=== PATIENT | male | born 2000 | race Caucasian/White ===

== ENCOUNTER 2022-07-17 16:56 | Emergency (ER) | payer BC, SELFPAY ==
[2022-07-17] VITALS (9 sets, daily range): BP systolic 105–133; BP diastolic 64–84; PULSE 60–74; RESP 10–21; TEMP 36.8; O2SAT 97–99; BMI 23.6
--- NOTE | 2022-07-17 18:07 | XR_ITS ---
[address] [address] Patient Name: NAPOLEON JOSE MRN: [id number] date: 2000 Sex: M Assigned Patient Location: ER Current Patient Location: ER Accession/Order Number: [id number] Exam Date: 07/17/2022 18:25 Report Date: 07/17/2022 19:22 At the request of: VIVIAN JOHNSON Procedure: XR chest 2V EXAMINATION: XR chest 2V, , 07/17/2022 6:25 PM EDT INDICATION: pain HISTORY: Ordering Provider Reason for Exam: pain Technologist Note: Additional: COMPARISON: None. TECHNIQUE: Chest x-ray: Two views. FINDINGS: No pneumothorax, pleural effusion or focal airspace consolidation. Heart is normal in size. Bony thorax is unremarkable. IMPRESSION: No acute cardiopulmonary process. Electronically authenticated by: SEBASTIAN SOTO Date: 07/17/2022 19:22
--- NOTE | 2022-07-17 18:07 | ED.GENADUL1 ---
Documented by User: Oliva Domínguez 07/17/22 19:59 HPI - General Adult General Chief complaint: Dizziness Stated complaint: SOB/ARM PAIN Time Seen by Provider: 07/17/22 18:03 Source: patient Mode of arrival: walk-in Limitations: no limitations History of Present Illness HPI narrative: 21-year-old male presents here chief complaint of two day history of chest pain with dizziness. Patient denies any recent surgery travel or trauma. The symptoms coming go. He states he was work last night and felt like he was going to pass out and had intermittent chest pain as well. She denies previous pulmonary embolism or any history of blood clots. Vital signs are stable he's afebrile he is not tachycardic or tachypneic Related Data Previous Rx's Medication Instructions Recorded meclizine 50 mg tablet (Antivert) 50 mg PO DAILY PRN dizziness #7 07/17/22 tabs Allergies Allergy/AdvReac Type Severity Reaction Status Date / Time No Known Drug Allergies Allergy Verified 07/17/22 17:07 Review of Systems ROS Narrative All Systems are negative except as noted/marked.All systems reviewed and otherwise negative Exam Narrative Exam Narrative: Nurses note and vital signs reviewed and patient is not hypoxic. General: The patient appears well and in no apparent distress. Patient is resting comfortably on cart. Skin: Warm, dry, no pallor noted. There is no rash noted. Head: Normocephalic, atraumatic Eye: Normal conjunctiva, no drainage, EOMI. PERRL, no nystagmus Ears, Nose, Mouth, and Throat: oral mucosa is moist. Nares patent. Mouth without vesicles. Ear canals patent. Tm's without Erythema Cardiovascular: Regular Rate and Rhythm Respiratory: Patient is in no distress, no accessory muscle use, lungs are clear to auscultation, no wheezing, rales or rhonchi Back: non-tender, no CVA tenderness bilaterally to percussion. GI: Normal bowel sounds, no tenderness to palpation, no masses appreciated. No rebound, guarding, or rigidity noted. Musculoskeletal: The patient has no evidence of calf tenderness, no pitting edema, symmetrical pulses noted bilaterally Neurological: A&O x4, normal speech Psychiatric: Cooperative Constitutional Vital Signs - 24 hr 07/17/22 17:04 07/17/22 17:11 07/17/22 17:12 Temperature 98.3 F Pulse Rate 71 71 Pulse Rate [Monitor] 72 Respiratory Rate 18 16 17 Blood Pressure 130/77 H Blood Pressure [Left Arm] 109/84 H Pulse Oximetry 97 98 Oxygen Delivery Method Room Air 07/17/22 17:12 07/17/22 17:12 07/17/22 17:30 Temperature Pulse Rate 70 74 66 Pulse Rate [Monitor] Respiratory Rate 17 15 19 Blood Pressure 130/77 H 113/64 Blood Pressure [Left Arm] Pulse Oximetry 99 98 98 Oxygen Delivery Method 07/17/22 18:00 07/17/22 18:32 07/17/22 19:00 Temperature Pulse Rate 72 60 62 Pulse Rate [Monitor] Respiratory Rate 21 16 14 Blood Pressure 108/65 123/79 H 123/74 H Blood Pressure [Left Arm] Pulse Oximetry 98 99 99 Oxygen Delivery Method 07/17/22 19:30 07/17/22 19:30 Temperature Pulse Rate 67 64 Pulse Rate [Monitor] Respiratory Rate 14 12 Blood Pressure 133/74 H 133/74 H Blood Pressure [Left Arm] Pulse Oximetry 98 98 Oxygen Delivery Method Course Vital Signs Vital signs: Vital Signs Temperature 98.3 F 07/17/22 17:04 Pulse Rate 72 07/17/22 17:04 Respiratory Rate 18 07/17/22 17:04 Blood Pressure 109/84 H 07/17/22 17:04 Pulse Oximetry 97 07/17/22 17:04 Oxygen Delivery Method Room Air 07/17/22 17:04 Temperature 98.3 F 07/17/22 17:04 Pulse Rate 63 07/17/22 20:00 Respiratory Rate 10 L 07/17/22 20:00 Blood Pressure 105/76 07/17/22 20:00 Pulse Oximetry 99 07/17/22 19:30 Oxygen Delivery Method Room Air 07/17/22 17:04 Medical Decision Making MDM Narrative Medical decision making narrative: Healthy 21-year-old male presented here chief complaint dizziness. Patient state felt dizzy earlier today and yesterday while at work. He said he had some chest pressure. EKG showed a normal sinus rhythm no acute changes. CBC BMP and troponin were all reviewed and unremarkable. D-dimer was also ordered and negative. Patient's had no recent surgery travel trauma. Patient shows no signs of symptoms of PE or stroke. He has no nystagmus. Patient was medicated here with Toradol for his chest wall pain is states that has improved. Patient be discharged home diagnosis chest wall pain, dizziness. Otherwise healthy. Differential Diagnosis Differential Diagnosis: Deep vein thrombosis, PE, dizziness, upper respiratory infection Medical Records Medical records reviewed: Yes I reviewed the patient's medical records Lab Data Lab results reviewed: Yes I reviewed the patient's lab results Labs: Lab Results 07/17/22 07/17/22 Range/Units 18:40 18:45 WBC 4.0 (4.0-11.0) 10^3/uL RBC 4.94 (4.70-6.10) 10^6/uL Hgb 15.6 (14.0-18.0) g/dL Hct 45.6 (42.0-54.0) % MCV 92.3 (80.0-94.0) fL MCH 31.6 (25.9-34.0) pg MCHC 34.2 (29.9-35.2) g/dL RDW 12.1 (11.0-15.0) % Plt Count 220 (150-450) 10^3/uL MPV 9.3 L (9.5-13.5) fL Neut % (Auto) 55.1 (43.0-75.0) % Lymph % (Auto) 29.8 (20.5-60.0) % [place] % (Auto) 11.9 (1.7-12.0) % Eos % (Auto) 2.5 (0.9-7.0) % Baso % (Auto) 0.5 (0.2-2.0) % Neut # (Auto) 2.2 (1.4-6.5) 10^3/uL Lymph # (Auto) 1.2 (1.2-3.8) 10^3/uL [place] # (Auto) 0.5 (0.3-0.8) 10^3/uL Eos # (Auto) 0.1 (0.0-0.7) 10^3/uL Baso # (Auto) 0.0 (0.0-0.1) 10^3/uL Abs Immat Gran (auto) 0.01 (0.00-0.03) 10^3/uL Imm/Tot Granulo (auto) 0.2 (0.0-0.5) % D-Dimer <0.19 (<=0.59) mg/L FEU Sodium 138 (136-145) mmol/L Potassium 3.9 (3.5-5.1) mmol/L Chloride 102 (98-107) mmol/L Carbon Dioxide 27.3 (21.0-32.0) mmol/L Anion Gap 12.6 BUN 15.0 (7.0-18.0) mg/dL Creatinine 0.84 (0.70-1.30) mg/dL Est GFR ( Amer) >60 (>=60) Est GFR (Non-Af Amer) >60 (>=60) BUN/Creatinine Ratio 17.9 Glucose 95 (74-106) mg/dL Calcium 9.5 (8.5-10.1) mg/dL Troponin I High Sens <4.0 L (4.0-76.1) pg/mL ECG Data Interpretation: 1711 normal sinus rhythm rate of 68 bpm, IL interval 114 ms, QRS 90 ms, no STEMI Discharge Plan Discharge Chief Complaint: Dizziness Clinical Impression: Dizziness Patient Disposition: Home, Self-Care Time of Disposition Decision: 19:50 Prescriptions / Home Meds: New Antivert 50 mg tablet 50 mg PO DAILY PRN (Reason: dizziness) Qty: 7 0RF Instructions: Dizziness (ED) Stand Alone Forms: Portal Instructions Referrals: KATHY WELLINGTON [Primary Care Provider] - 1 week Discharge Date/Time: 07/17/22 20:05 Documented by User: Kayce Dumont MD 07/20/22 11:57 HPI - General Adult General Chief complaint: Dizziness Stated complaint: SOB/ARM PAIN Time Seen by Provider: 07/17/22 18:03 Related Data Previous Rx's Medication Instructions Recorded meclizine 50 mg tablet (Antivert) 50 mg PO DAILY PRN dizziness #7 07/17/22 tabs Allergies Allergy/AdvReac Type Severity Reaction Status Date / Time No Known Drug Allergies Allergy Verified 07/17/22 17:07 Exam Constitutional Vital Signs - 24 hr 07/17/22 17:04 07/17/22 17:11 07/17/22 17:12 Temperature 98.3 F Pulse Rate 71 71 Pulse Rate [Monitor] 72 Respiratory Rate 18 16 17 Blood Pressure 130/77 H Blood Pressure [Left Arm] 109/84 H Pulse Oximetry 97 98 Oxygen Delivery Method Room Air 07/17/22 17:12 07/17/22 17:12 07/17/22 17:30 Temperature Pulse Rate 70 74 66 Pulse Rate [Monitor] Respiratory Rate 17 15 19 Blood Pressure 130/77 H 113/64 Blood Pressure [Left Arm] Pulse Oximetry 99 98 98 Oxygen Delivery Method 07/17/22 18:00 07/17/22 18:32 07/17/22 19:00 Temperature Pulse Rate 72 60 62 Pulse Rate [Monitor] Respiratory Rate 21 16 14 Blood Pressure 108/65 123/79 H 123/74 H Blood Pressure [Left Arm] Pulse Oximetry 98 99 99 Oxygen Delivery Method 07/17/22 19:30 07/17/22 19:30 Temperature Pulse Rate 67 64 Pulse Rate [Monitor] Respiratory Rate 14 12 Blood Pressure 133/74 H 133/74 H Blood Pressure [Left Arm] Pulse Oximetry 98 98 Oxygen Delivery Method Course Vital Signs Vital signs: Vital Signs Temperature 98.3 F 07/17/22 17:04 Pulse Rate 72 07/17/22 17:04 Respiratory Rate 18 07/17/22 17:04 Blood Pressure 109/84 H 07/17/22 17:04 Pulse Oximetry 97 07/17/22 17:04 Oxygen Delivery Method Room Air 07/17/22 17:04 Temperature 98.3 F 07/17/22 17:04 Pulse Rate 63 07/17/22 20:00 Respiratory Rate 10 L 07/17/22 20:00 Blood Pressure 105/76 07/17/22 20:00 Pulse Oximetry 99 07/17/22 19:30 Oxygen Delivery Method Room Air 07/17/22 17:04 Medical Decision Making MDM Narrative Medical decision making narrative: Healthy 21-year-old male presented here chief complaint dizziness. Patient state felt dizzy earlier today and yesterday while at work. He said he had some chest pressure. EKG showed a normal sinus rhythm no acute changes. CBC BMP and troponin were all reviewed and unremarkable. D-dimer was also ordered and negative. Patient's had no recent surgery travel trauma. Patient shows no signs of symptoms of PE or stroke. He has no nystagmus. Patient was medicated here with Toradol for his chest wall pain is states that has improved. Patient be discharged home diagnosis chest wall pain, dizziness. Otherwise healthy. Attending physician attestation I have reviewed the mid-level documentation, agree with the documentation, medical decision making and treatment plan as outlined by the mid-level provider. Lab Data Labs: Lab Results 07/17/22 07/17/22 Range/Units 18:40 18:45 WBC 4.0 (4.0-11.0) 10^3/uL RBC 4.94 (4.70-6.10) 10^6/uL Hgb 15.6 (14.0-18.0) g/dL Hct 45.6 (42.0-54.0) % MCV 92.3 (80.0-94.0) fL MCH 31.6 (25.9-34.0) pg MCHC 34.2 (29.9-35.2) g/dL RDW 12.1 (11.0-15.0) % Plt Count 220 (150-450) 10^3/uL MPV 9.3 L (9.5-13.5) fL Neut % (Auto) 55.1 (43.0-75.0) % Lymph % (Auto) 29.8 (20.5-60.0) % [place] % (Auto) 11.9 (1.7-12.0) % Eos % (Auto) 2.5 (0.9-7.0) % Baso % (Auto) 0.5 (0.2-2.0) % Neut # (Auto) 2.2 (1.4-6.5) 10^3/uL Lymph # (Auto) 1.2 (1.2-3.8) 10^3/uL [place] # (Auto) 0.5 (0.3-0.8) 10^3/uL Eos # (Auto) 0.1 (0.0-0.7) 10^3/uL Baso # (Auto) 0.0 (0.0-0.1) 10^3/uL Abs Immat Gran (auto) 0.01 (0.00-0.03) 10^3/uL Imm/Tot Granulo (auto) 0.2 (0.0-0.5) % D-Dimer <0.19 (<=0.59) mg/L FEU Sodium 138 (136-145) mmol/L Potassium 3.9 (3.5-5.1) mmol/L Chloride 102 (98-107) mmol/L Carbon Dioxide 27.3 (21.0-32.0) mmol/L Anion Gap 12.6 BUN 15.0 (7.0-18.0) mg/dL Creatinine 0.84 (0.70-1.30) mg/dL Est GFR ( Amer) >60 (>=60) Est GFR (Non-Af Amer) >60 (>=60) BUN/Creatinine Ratio 17.9 Glucose 95 (74-106) mg/dL Calcium 9.5 (8.5-10.1) mg/dL Troponin I High Sens <4.0 L (4.0-76.1) pg/mL Discharge Plan Discharge Chief Complaint: Dizziness Clinical Impression: Dizziness Patient Disposition: Home, Self-Care Time of Disposition Decision: 19:50 Prescriptions / Home Meds: New Antivert 50 mg tablet 50 mg PO DAILY PRN (Reason: dizziness) Qty: 7 0RF Instructions: Dizziness (ED) Stand Alone Forms: Portal Instructions Referrals: KATHY WELLINGTON [Primary Care Provider] - 1 week Discharge Date/Time: 07/17/22 20:05
[2022-07-17] MEDS: KETOROLAC TROMETHAMINE 30 MG/ML VIAL IVP (18:44)
[2022-07-17 18:53] LABS: Basophils Percent Auto 0.5 % (0.2-2.0); Eosinophils Absolute Auto 0.1 10^3/uL (0.0-0.7); Eosinophils Percent Auto 2.5 % (0.9-7.0); Hematocrit 45.6 % (42.0-54.0); Hemoglobin 15.6 g/dL (14.0-18.0); Immature Granulocytes Abs Auto 0.01 10^3/uL (0.00-0.03); Immature Granulocytes Pct Auto 0.2 % (0.0-0.5); Lymphocytes Absolute Auto 1.2 10^3/uL (1.2-3.8); Lymphocytes Percent Auto 29.8 % (20.5-60.0); Mean Corpuscular HGB Conc 34.2 g/dL (29.9-35.2); Mean Corpuscular Hemoglobin 31.6 pg (25.9-34.0); Mean Corpuscular Volume 92.3 fL (80.0-94.0); Mean Platelet Volume 9.3 fL (9.5-13.5); Monocytes Absolute Auto 0.5 10^3/uL (0.3-0.8); Monocytes Percent Auto 11.9 % (1.7-12.0); Neutrophils Absolute Auto 2.2 10^3/uL (1.4-6.5); Neutrophils Percent Auto 55.1 % (43.0-75.0); Platelet Count 220 10^3/uL (150-450); Red Blood Count 4.94 10^6/uL (4.70-6.10); Red Cell Distribution Width 12.1 % (11.0-15.0)
--- NOTE | 2022-07-17 19:04 | ECG_ITS ---
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
[2022-07-17 19:13] LABS: Anion Gap 12.6; BUN Creatinine Ratio 17.9; Calcium 9.5 mg/dL (8.5-10.1); Carbon Dioxide 27.3 mmol/L (21.0-32.0); Chloride 102 mmol/L (98-107); Estimated GFR (African America >60 (>=60); Estimated GFR (Non-African Ame >60 (>=60); Glucose 95 mg/dL (74-106); Potassium 3.9 mmol/L (3.5-5.1); Sodium 138 mmol/L (136-145); Troponin I High Sensitivity <4.0 pg/mL (4.0-76.1)
[2022-07-17 19:37] LABS: D Dimer <0.19 mg/L FEU (<=0.59)
== END 2022-07-17 20:05 | disposition home or self-care (01) ==
PROVIDERS: Physician Assistant; Emergency Provider Emergency Medicine; PCP Family Medicine
DX: R42 Dizziness and giddiness (principal)
CPT/HCPCS: 36415; 71046; 80048; 84484; 85025; 85378; 93005; 96374; 99285

== ENCOUNTER 2023-06-13 20:45 | Observation (INO) | payer BC, SELFPAY ==
[2023-06-13 21:01] VITALS: BP 133/78; O2SAT 100
[2023-06-13 21:02] VITALS: BP 133/78; PULSE 85; TEMP 36.9; O2SAT 100; BMI 22.2
--- NOTE | 2023-06-13 21:21 | XR_ITS ---
The [address] [address] Patient Name: NAPOLEON JOSE MRN: [id number] date: 2000 Sex: M Assigned Patient Location: ER Current Patient Location: ER Accession/Order Number: [id number] Exam Date: 06/13/2023 21:37 Report Date: 06/13/2023 23:27 At the request of: VIVIAN JOHNSON Procedure: XR chest 2V CXR- 2 VIEW HISTORY: Shortness of breath. COMPARISON: None. TECHNIQUE: 2 views of the chest are submitted for review. FINDINGS: The lungs are adequately expanded without evidence of infiltrate and/or effusion. The cardiac silhouette measures within normal. Pulmonary vascularity is unremarkable. Osseous structures are within normal limits for age. XR/XR chest 2V IMPRESSION: No plain film evidence for acute cardiopulmonary disease. Electronically authenticated by: RAFAEL BOBO Date: 06/13/2023 23:27
--- NOTE | 2023-06-13 21:21 | ECG_ITS ---
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
[2023-06-13 21:28] VITALS: PULSE 76
[2023-06-13 21:44] LABS: Basophils Percent Auto 0.6 % (0.2-2.0); Eosinophils Absolute Auto 0.1 10^3/uL (0.0-0.7); Eosinophils Percent Auto 1.5 % (0.9-7.0); Hematocrit 43.4 % (42.0-54.0); Hemoglobin 14.5 g/dL (14.0-18.0); Immature Granulocytes Abs Auto 0.01 10^3/uL (0.00-0.03); Immature Granulocytes Pct Auto 0.2 % (0.0-0.5); Lymphocytes Absolute Auto 1.3 10^3/uL (1.2-3.8); Lymphocytes Percent Auto 28.6 % (20.5-60.0); Mean Corpuscular HGB Conc 33.4 g/dL (29.9-35.2); Mean Corpuscular Hemoglobin 30.5 pg (25.9-34.0); Mean Corpuscular Volume 91.4 fL (80.0-94.0); Mean Platelet Volume 9.6 fL (9.5-13.5); Monocytes Absolute Auto 0.4 10^3/uL (0.3-0.8); Monocytes Percent Auto 8.8 % (1.7-12.0); Neutrophils Absolute Auto 2.8 10^3/uL (1.4-6.5); Neutrophils Percent Auto 60.3 % (43.0-75.0); Platelet Count 220 10^3/uL (150-450); Red Blood Count 4.75 10^6/uL (4.70-6.10); Red Cell Distribution Width 11.7 % (11.0-15.0); White Blood Count 4.7 10^3/uL (4.0-11.0)
[2023-06-13 21:44] LABS: Bilirubin Urine NEGATIVE (NEGATIVE); Blood Urine TRACE-I (NEGATIVE); Clarity Urine CLEAR (CLEAR); Color Urine LT. YELLOW (YELLOW); Glucose Urine UA NEGATIVE (NEGATIVE); Ketones Urine NEGATIVE (NEGATIVE); Leukocyte Esterase Urine NEGATIVE (NEGATIVE); Nitrite Urine NEGATIVE (NEGATIVE); Protein Urine NEGATIVE (NEG/TRACE); Specific Gravity Urine <=1.005 (1.005-1.025); Urobilinogen Urine 0.2 EU/dL (0.2-1.0)
[2023-06-13 21:49] LABS: Urine Microscopic Indicated YES
[2023-06-13 21:51] LABS: Bacteria Urine NONE SEEN #/HPF (NONE SEEN); Cast Seen? NONE SEEN #/LPF (NONE SEEN); Crystals Seen? None Seen #/HPF (None Seen); Mucus Urine NONE SEEN (NONE SEEN); RBC Urine 0-2 #/HPF (0-2); Squamous Epithelial Cell Urine NONE SEEN #/LPF (NONE/RARE); Urine Culture Indicated NO; WBC Urine NONE SEEN #/HPF (NONE SEEN)
[2023-06-13 21:55] LABS: Influenza Virus A Antigen Negative; Influenza Virus B Antigen Negative; Internal Control Within Normal Limits; SARS-CoV-2 Ag NEGATIVE (NEGATIVE)
--- NOTE | 2023-06-13 21:55 | ED.DIZZY1 ---
Documented by User: Oliva Domínguez 06/13/23 22:50 HPI - Dizziness General Chief Complaint: Dizziness Stated Complaint: near syncopy last few days multiple times Time Seen by Provider: 06/13/23 21:09 Source: patient Mode of arrival: walk-in Limitations: no limitations History of Present Illness HPI Narrative: 22-year-old male presents here with chief complaint of dizziness and nausea for the past several days. He states he becomes nauseous and dizzy. He states he believes he may have his sugars may be dropping when he takes drinks of sweet fluids or Gatorade and his symptoms do improve. 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 He states he then felt dizzy and lightheaded presented here to the emergency room he did drink some Gatorade and felt better. He denies any positional dizziness. Denies a history of vertigo.Patient denies headache blurred vision double vision. He is alert and oriented. Related Data Home Medications ?Medication ?Instructions ?Recorded ?Confirmed No Known Home Medications 06/13/23 06/13/23 Allergies Allergy/AdvReac Type Severity Reaction Status Date / Time No Known Drug Allergies Allergy Verified 06/13/23 21:02 Review of Systems ROS Narrative All Systems are negative except as noted/marked.All systems reviewed and otherwise negative Exam Narrative Exam Narrative: Nurses note and vital signs reviewed and patient is not hypoxic. General: The patient appears well and in no apparent distress. Patient is resting comfortably on cart. Skin: Warm, dry, no pallor noted. There is no rash noted. Head: Normocephalic, atraumatic Eye: Normal conjunctiva, no drainage, EOMI. PERRL no nystagmus Ears, Nose, Mouth, and Throat: oral mucosa is moist. Nares patent. Mouth without vesicles. Ear canals patent. Tm's without Erythema Cardiovascular: Regular Rate and Rhythm Respiratory: Patient is in no distress, no accessory muscle use, lungs are clear to auscultation, no wheezing, rales or rhonchi Back: non-tender, no CVA tenderness bilaterally to percussion. GI: Normal bowel sounds, no tenderness to palpation, no masses appreciated. No rebound, guarding, or rigidity noted. Musculoskeletal: The patient has no evidence of calf tenderness, no pitting edema, symmetrical pulses noted bilaterally Neurological: A&O x4, normal speech Psychiatric: Cooperative Constitutional Vital Signs, click to edit/add: Last Vital Signs Temp 98.4 F 06/13/23 21:02 Pulse 76 06/13/23 21:28 Resp 16 06/13/23 21:28 BP 133/78 06/13/23 21:02 Pulse Ox 100 06/13/23 21:02 O2 Del Method Room Air 06/13/23 21:02 Course Vital Signs Vital signs: Vital Signs Blood Pressure 133/78 06/13/23 21:01 Pulse Oximetry 100 06/13/23 21:01 Temperature 98.4 F 06/13/23 21:02 Pulse Rate 76 06/13/23 21:28 Respiratory Rate 16 06/13/23 21:28 Blood Pressure 133/78 06/13/23 21:02 Pulse Oximetry 100 06/13/23 21:02 Oxygen Delivery Method Room Air 06/13/23 21:02 MDM - Dizziness MDM Narrative Medical decision making narrative: 22-year-old male presents here with chief complaint of dizziness and nausea for the past several days. He states he becomes nauseous and dizzy. He states he believes he may have his sugars may be dropping when he takes drinks of sweet fluids or Gatorade and his symptoms do improve. 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 He states he then felt dizzy and lightheaded presented here to the emergency room he did drink some Gatorade and felt better. He denies any positional dizziness. Denies a history of vertigo.Patient denies headache blurred vision double vision. He is alert and oriented. Medical Records Attestation: I reviewed the patient's medical records. Lab Data Attestation: I reviewed the patient's lab results. Labs: Lab Results 06/13/23 06/13/23 06/13/23 Range/Units 21:10 21:20 21:34 WBC 4.7 (4.0-11.0) 10^3/uL RBC 4.75 (4.70-6.10) 10^6/uL Hgb 14.5 (14.0-18.0) g/dL Hct 43.4 (42.0-54.0) % MCV 91.4 (80.0-94.0) fL MCH 30.5 (25.9-34.0) pg MCHC 33.4 (29.9-35.2) g/dL RDW 11.7 (11.0-15.0) % Plt Count 220 (150-450) 10^3/uL MPV 9.6 (9.5-13.5) fL Neut % (Auto) 60.3 (43.0-75.0) % Lymph % (Auto) 28.6 (20.5-60.0) % Wheeler % (Auto) 8.8 (1.7-12.0) % Eos % (Auto) 1.5 (0.9-7.0) % Baso % (Auto) 0.6 (0.2-2.0) % Neut # (Auto) 2.8 (1.4-6.5) 10^3/uL Lymph # (Auto) 1.3 (1.2-3.8) 10^3/uL [place] # (Auto) 0.4 (0.3-0.8) 10^3/uL Eos # (Auto) 0.1 (0.0-0.7) 10^3/uL Baso # (Auto) 0.0 (0.0-0.1) 10^3/uL Abs Immat Gran (auto) 0.01 (0.00-0.03) 10^3/uL Imm/Tot Granulo (auto) 0.2 (0.0-0.5) % Sodium 139 (136-145) mmol/L Potassium 4.0 (3.5-5.1) mmol/L Chloride 100 (98-107) mmol/L Carbon Dioxide 30.7 (21.0-32.0) mmol/L Anion Gap 12.3 BUN 11.0 (7.0-18.0) mg/dL Creatinine 0.79 (0.70-1.30) mg/dL Est GFR ( Amer) >60 (>=60) Est GFR (Non-Af Amer) >60 (>=60) BUN/Creatinine Ratio 13.9 Glucose 92 (74-106) mg/dL Estimat Average Glucose 103 mg/dL Hemoglobin A1c 5.2 (4.5-6.2) % Calcium 9.7 (8.5-10.1) mg/dL Total Bilirubin 0.6 (0.2-1.0) mg/dL AST 10 L (15-37) U/L ALT 19 (16-63) U/L Alkaline Phosphatase 47 (46-116) U/L Troponin I High Sens <4.0 L (4.0-76.1) pg/mL Total Protein 8.0 (6.4-8.2) g/dL Albumin 4.4 (3.4-5.0) g/dL Globulin 3.6 g/dL Albumin/Globulin Ratio 1.2 Lipase 32.0 (16.0-77.0) U/L Urine Color Lt. yellow (YELLOW) Urine Clarity Clear (CLEAR) Urine pH 7.0 (5.0-9.0) Ur Specific [place] <=1.005 A (1.005-1.025) Urine Protein Negative (NEG/TRACE) mg/dL Urine Glucose (UA) Negative (NEGATIVE) mg/dL Urine Ketones Negative (NEGATIVE) mg/dL Urine Occult Blood Trace-i (NEGATIVE) Urine Nitrite Negative (NEGATIVE) Urine Bilirubin Negative (NEGATIVE) Urine Urobilinogen 0.2 (0.2-1.0) EU/dL Ur Leukocyte Esterase Negative (NEGATIVE) Urine RBC 0-2 (0-2) #/HPF Urine WBC None seen (NONE SEEN) #/HPF Ur Squamous Epith Cells None seen (NONE/RARE) #/LPF Urine Crystals None seen (None Seen) #/HPF Urine Bacteria None seen (NONE SEEN) #/HPF Urine Casts None seen (NONE SEEN) #/LPF Urine Mucus None seen (NONE SEEN) Ur Culture Indicated? No Monoscreen Negative (NEGATIVE) Influenza Type A Ag Negative Influenza Type B Ag Negative SARS-CoV-2 Ag (CV2AG) Negative (NEGATIVE) Imaging Data Chest x-ray: Radiologist's impression: ITS Impressions Chest X-Ray 06/13/23 21:21 IMPRESSION: No plain film evidence for acute cardiopulmonary disease. Electronically authenticated by: RAFAEL BOBO Date: 06/13/2023 23:[address] 06/13/23 22:20 IMPRESSION: 1. Foci of increased attenuation in the posterior left temporal lobe detected by AI. This maybe a false positive result. Recommend either repeat CT head in 4-6 hours AND/OR an MRI in the morning with DWI imaging to better evaluate for any change given that patient's symptoms have resolved. 2. If patient continues to have symptoms or if there remains any further clinical concern, MRI may help better delineate if clinically indicated. CRITICAL findings discussed with DR. Barnes at 11:50 PM at 11:50 PM Electronically authenticated by: RAFAEL BOBO Date: 06/13/2023 23:51 ECG Data Attestation: ?I have reviewed the pertinent ECG results. Interpretation: 2127 EKG shows normal sinus rhythm rate 76 bpm IN interval 114 ms QRS duration 88 ms no STEMI no ST elevation or depression Discharge Plan Discharge Stand Alone Forms: Portal Instructions Chief Complaint: Dizziness Clinical Impression: Dizziness Patient Disposition: Admitted as Observation Condition: Good Prescriptions / Home Meds: No Action No Known Home Medications Print Language: Micronesian Instructions: Lightheadedness (ED) Referrals: Physician,Non-Staff, MD [Primary Care Provider] - 1 week Documented by User: Fredy Banres MD 06/14/23 00:37 HPI - Dizziness General Chief Complaint: Dizziness Stated Complaint: near syncopy last few days multiple times Time Seen by Provider: 06/13/23 21:09 Related Data Home Medications ?Medication ?Instructions ?Recorded ?Confirmed No Known Home Medications 06/13/23 06/13/23 Allergies Allergy/AdvReac Type Severity Reaction Status Date / Time No Known Drug Allergies Allergy Verified 06/13/23 21:02 Exam Constitutional Vital Signs, click to edit/add: Last Vital Signs Temp 98.4 F 06/13/23 21:02 Pulse 76 06/13/23 21:28 Resp 16 06/13/23 21:28 BP 133/78 06/13/23 21:02 Pulse Ox 100 06/13/23 21:02 O2 Del Method Room Air 06/13/23 21:02 Course Vital Signs Vital signs: Vital Signs Blood Pressure 133/78 06/13/23 21:01 Pulse Oximetry 100 06/13/23 21:01 Temperature 98.4 F 06/13/23 21:02 Pulse Rate 76 06/13/23 21:28 Respiratory Rate 16 06/13/23 21:28 Blood Pressure 133/78 06/13/23 21:02 Pulse Oximetry 100 06/13/23 21:02 Oxygen Delivery Method Room Air 06/13/23 21:02 MDM - Dizziness MDM Narrative Medical decision making narrative: 22-year-old male presents here with chief complaint of dizziness and nausea for the past several days. He states he becomes nauseous and dizzy. He states he believes he may have his sugars may be dropping when he takes drinks of sweet fluids or Gatorade and his symptoms do improve. 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 He states he then felt dizzy and lightheaded presented here to the emergency room he did drink some Gatorade and felt better. He denies any positional dizziness. Denies a history of vertigo.Patient denies headache blurred vision double vision. He is alert and oriented. CT returned with abnormal finding interpreted by AI that radiology feels is likely false positive. Radiology recommends either repeat CT brain in 6 hours or MRI in AM. [facility] with [facility] physician and he feels the patient can stay over night here at [place] and receive repeat MRI brain in the AM. Discussed with the hospitalist and patient accepted for admission Lab Data Labs: Lab Results 06/13/23 06/13/23 06/13/23 Range/Units 21:10 21:20 21:34 WBC 4.7 (4.0-11.0) 10^3/uL RBC 4.75 (4.70-6.10) 10^6/uL Hgb 14.5 (14.0-18.0) g/dL Hct 43.4 (42.0-54.0) % MCV 91.4 (80.0-94.0) fL MCH 30.5 (25.9-34.0) pg MCHC 33.4 (29.9-35.2) g/dL RDW 11.7 (11.0-15.0) % Plt Count 220 (150-450) 10^3/uL MPV 9.6 (9.5-13.5) fL Neut % (Auto) 60.3 (43.0-75.0) % Lymph % (Auto) 28.6 (20.5-60.0) % Wheeler % (Auto) 8.8 (1.7-12.0) % Eos % (Auto) 1.5 (0.9-7.0) % Baso % (Auto) 0.6 (0.2-2.0) % Neut # (Auto) 2.8 (1.4-6.5) 10^3/uL Lymph # (Auto) 1.3 (1.2-3.8) 10^3/uL Wheeler # (Auto) 0.4 (0.3-0.8) 10^3/uL Eos # (Auto) 0.1 (0.0-0.7) 10^3/uL Baso # (Auto) 0.0 (0.0-0.1) 10^3/uL Abs Immat Gran (auto) 0.01 (0.00-0.03) 10^3/uL Imm/Tot Granulo (auto) 0.2 (0.0-0.5) % Sodium 139 (136-145) mmol/L Potassium 4.0 (3.5-5.1) mmol/L Chloride 100 (98-107) mmol/L Carbon Dioxide 30.7 (21.0-32.0) mmol/L Anion Gap 12.3 BUN 11.0 (7.0-18.0) mg/dL Creatinine 0.79 (0.70-1.30) mg/dL Est GFR ( Amer) >60 (>=60) Est GFR (Non-Af Amer) >60 (>=60) BUN/Creatinine Ratio 13.9 Glucose 92 (74-106) mg/dL Estimat Average Glucose 103 mg/dL Hemoglobin A1c 5.2 (4.5-6.2) % Calcium 9.7 (8.5-10.1) mg/dL Total Bilirubin 0.6 (0.2-1.0) mg/dL AST 10 L (15-37) U/L ALT 19 (16-63) U/L Alkaline Phosphatase 47 (46-116) U/L Troponin I High Sens <4.0 L (4.0-76.1) pg/mL Total Protein 8.0 (6.4-8.2) g/dL Albumin 4.4 (3.4-5.0) g/dL Globulin 3.6 g/dL Albumin/Globulin Ratio 1.2 Lipase 32.0 (16.0-77.0) U/L Urine Color Lt. yellow (YELLOW) Urine Clarity Clear (CLEAR) Urine pH 7.0 (5.0-9.0) Ur Specific [place] <=1.005 A (1.005-1.025) Urine Protein Negative (NEG/TRACE) mg/dL Urine Glucose (UA) Negative (NEGATIVE) mg/dL Urine Ketones Negative (NEGATIVE) mg/dL Urine Occult Blood Trace-i (NEGATIVE) Urine Nitrite Negative (NEGATIVE) Urine Bilirubin Negative (NEGATIVE) Urine Urobilinogen 0.2 (0.2-1.0) EU/dL Ur Leukocyte Esterase Negative (NEGATIVE) Urine RBC 0-2 (0-2) #/HPF Urine WBC None seen (NONE SEEN) #/HPF Ur Squamous Epith Cells None seen (NONE/RARE) #/LPF Urine Crystals None seen (None Seen) #/HPF Urine Bacteria None seen (NONE SEEN) #/HPF Urine Casts None seen (NONE SEEN) #/LPF Urine Mucus None seen (NONE SEEN) Ur Culture Indicated? No Monoscreen Negative (NEGATIVE) Influenza Type A Ag Negative Influenza Type B Ag Negative SARS-CoV-2 Ag (CV2AG) Negative (NEGATIVE) Imaging Data Chest x-ray: Radiologist's impression: ITS Impressions Chest X-Ray 06/13/23 21:21 IMPRESSION: No plain film evidence for acute cardiopulmonary disease. Electronically authenticated by: RAFAEL BOBO Date: 06/13/2023 23:[address] 06/13/23 22:20 IMPRESSION: 1. Foci of increased attenuation in the posterior left temporal lobe detected by AI. This maybe a false positive result. Recommend either repeat CT head in 4-6 hours AND/OR an MRI in the morning with DWI imaging to better evaluate for any change given that patient's symptoms have resolved. 2. If patient continues to have symptoms or if there remains any further clinical concern, MRI may help better delineate if clinically indicated. CRITICAL findings discussed with DR. Barnes at 11:50 PM at 11:50 PM Electronically authenticated by: RAFAEL BOBO Date: 06/13/2023 23:51 Discharge Plan Discharge Stand Alone Forms: Portal Instructions Chief Complaint: Dizziness Clinical Impression: Dizziness Patient Disposition: Admitted as Observation Condition: Good Prescriptions / Home Meds: No Action No Known Home Medications Print Language: Micronesian Instructions: Lightheadedness (ED) Referrals: Physician,Non-Staff, MD [Primary Care Provider] - 1 week
[2023-06-13 21:56] LABS: Estimated Average Glucose 103 mg/dL; Glycohemoglobin A1C 5.2 % (4.5-6.2)
[2023-06-13] MEDS: 0.9 % SODIUM CHLORIDE 1,000 ML 100 ML IV (21:57)
[2023-06-13] MEDS: ONDANSETRON PF 4 MG/2 ML VIAL IV (21:57)
[2023-06-13 22:07] LABS: Alanine Aminotransferase 19 U/L (16-63); Albumin Globulin Ratio 1.2; Albumin Level 4.4 g/dL (3.4-5.0); Alkaline Phosphatase 47 U/L (46-116); Anion Gap 12.3; Aspartate Amino Transferase 10 U/L (15-37); BUN Creatinine Ratio 13.9; Bilirubin Total 0.6 mg/dL (0.2-1.0); Calcium 9.7 mg/dL (8.5-10.1); Carbon Dioxide 30.7 mmol/L (21.0-32.0); Chloride 100 mmol/L (98-107); Estimated GFR (African America >60 (>=60); Estimated GFR (Non-African Ame >60 (>=60); Globulin 3.6 g/dL; Glucose 92 mg/dL (74-106); Sodium 139 mmol/L (136-145); Troponin I High Sensitivity <4.0 pg/mL (4.0-76.1)
[2023-06-13 22:08] LABS: Mono Screen NEGATIVE (NEGATIVE)
--- NOTE | 2023-06-13 22:20 | CT_ITS ---
The [address] [address] Patient Name: NAPOLEON JOSE MRN: [id number] date: 2000 Sex: M Assigned Patient Location: ER Current Patient Location: ER Accession/Order Number: [id number] Exam Date: 06/13/2023 22:49 Report Date: 06/13/2023 23:51 At the request of: VIVIAN JOHNSON Procedure: CT head/brain wo con EXAM: NONCONTRAST CT SCAN OF THE HEAD HISTORY: Headache. TECHNIQUE: Multiple axial images are taken from the level the vertex down to the base of the skull without the use of IV contrast. Images were then reconstructed in the sagittal and coronal planes. This exam was performed according to our departmental dose-optimization program which includes use of Automated Exposure Control, adjustment of the mA and/or kV according to patient size and/or use of iterative reconstruction technique. COMPARISON: None. FINDINGS: Brain Parenchyma: AI doc with foci of increased attenuation in the posterior left temporal lobe. No intracranial mass. Cooley-white matter within expected limits of normal for patient's age. Posterior fossa: Normal. Midline shift: None Extra-axial fluid collection: None Ventricles: Normal. Mastoid air cells: Normal. Sinuses: Normal. Cranium: No depressed skull fracture. Soft tissues: Normal. Orbits: Normal. CT/CT head/brain wo con IMPRESSION: 1. Foci of increased attenuation in the posterior left temporal lobe detected by AI. This maybe a false positive result. Recommend either repeat CT head in 4-6 hours AND/OR an MRI in the morning with DWI imaging to better evaluate for any change given that patient's symptoms have resolved. 2. If patient continues to have symptoms or if there remains any further clinical concern, MRI may help better delineate if clinically indicated. CRITICAL findings discussed with DR. Barnes at 11:50 PM at 11:50 PM Electronically authenticated by: RAFAEL BOBO Date: 06/13/2023 23:51
[2023-06-14] VITALS (15 sets, daily range): BP systolic 128–134; BP diastolic 72–80; PULSE 60–96; TEMP 36.4–36.9; O2SAT 97–100; BMI 22.7
[2023-06-14 01:11] LABS: Salicylate <2.8 mg/dL (<=19.9)
[2023-06-14 01:45] LABS: Acetaminophen <2.0 ug/mL (10.0-30.0)
[2023-06-14 01:46] LABS: Amphetamine Screen Urine NEGATIVE (NEGATIVE); Barbiturates Screen Urine NEGATIVE (NEGATIVE); Benzodiazepines Screen Urine NEGATIVE (NEGATIVE); Buprenorphine Screen Urine NEGATIVE (NEGATIVE); Cannabinoid Screen Urine NEGATIVE (NEGATIVE); Cocaine Screen Urine NEGATIVE (NEGATIVE); Methadone Screen Urine NEGATIVE (NEGATIVE); Methamphetamines Screen Urine NEGATIVE (NEGATIVE); Opiate Screen Urine NEGATIVE (NEGATIVE); Oxycodone Screen Urine NEGATIVE (NEGATIVE); Phencyclidine Screen Urine NEGATIVE (NEGATIVE); Tricyclic Antidepressant Urine NEGATIVE (NEGATIVE)
[2023-06-14 04:16] LABS: Hematocrit 40.4 % (42.0-54.0); Hemoglobin 13.7 g/dL (14.0-18.0); Mean Corpuscular HGB Conc 33.9 g/dL (29.9-35.2); Mean Corpuscular Volume 91.4 fL (80.0-94.0); Mean Platelet Volume 9.6 fL (9.5-13.5); Platelet Count 230 10^3/uL (150-450); Red Blood Count 4.42 10^6/uL (4.70-6.10); Red Cell Distribution Width 11.7 % (11.0-15.0); White Blood Count 8.7 10^3/uL (4.0-11.0)
[2023-06-14 04:36] LABS: Anion Gap 13.2; BUN Creatinine Ratio 11.8; Calcium 9.3 mg/dL (8.5-10.1); Carbon Dioxide 28.4 mmol/L (21.0-32.0); Chloride 104 mmol/L (98-107); Estimated GFR (African America >60 (>=60); Estimated GFR (Non-African Ame >60 (>=60); Glucose 104 mg/dL (74-106); Potassium 3.6 mmol/L (3.5-5.1); Sodium 142 mmol/L (136-145)
[2023-06-14] MEDS: 0.9 % SODIUM CHLORIDE 1,000 ML 100 ML IV (06:41)
--- NOTE | 2023-06-14 07:00 | MR_ITS ---
The [address] [address] Patient Name: NAPOLEON JOSE MRN: [id number] date: 2000 Sex: M Assigned Patient Location: ICU Current Patient Location: ICU Accession/Order Number: [id number] Exam Date: 06/14/2023 08:20 Report Date: 06/14/2023 09:20 At the request of: KISHA REN Procedure: MR head/brain wo con MRI BRAIN WITHOUT CONTRAST; 06/14/2023 8:20 AM EDT History:Dizziness; Abn CT heat findings Comparison: Head CT 06/13/2023 . SEQUENCES: Per routine unenhanced protocol. STUDY QUALITY: Good No evidence of acute infarction. No restricted diffusion. No unexpected paramagnetic substance deposition. 3 mm focus of T2 and T2 FLAIR hyperintensity left frontal white matter left lateral frontal white matter. A few other similar foci of subcortical signal alteration lateral aspects of both frontal lobes On this unenhanced exam no evidence of intracranial mass effect. No midline shift. VESSELS: Signal voids are present in the major intracranial blood vessels. BRAIN VOLUME: Normal for age. VENTRICLES: No hydrocephalus. ORBITS: No acute findings. SELLA/ SUPRASELLAR: No acute findings at relatively thick sections. CP ANGLES: No acute findings at relatively thick sections. UPPER CERVICAL: No acute findings. PARANASAL SINUSES: No air-fluid levels. Areas of mild mucosal thickening in the ethmoids MASTOIDS: Essentially clear at MRI CALVARIUM: No acute findings. OTHER: None. MR/MR head/brain wo con IMPRESSION: 1. No evidence of acute infarction. No unexpected paramagnetic substance deposition. 2. A few fairly small scattered foci of T2 and T2 FLAIR hyperintensity in the supratentorial white matter are nonspecific. Electronically authenticated by: CHINTAN CHEATHAM Date: 06/14/2023 09:20
--- NOTE | 2023-06-14 13:30 | PM.HP ---
HPI H&P: HPI History of Present Illness Chief complaint: near syncopy last few days multiple times Dizzines Narrative: HPI and Hospital Course: 22 y o male with no sig PMHx was in his usual state of health when he felt hot and cold along with a sensation that he will pass out. He also felt that his balance was off and that he would fall. He came to ED for further evaluation and admitted for an MRI after CTH performed in ED revealed an area of hypoattenuation in temporal region. MRI brain was performed that showed non specific small scattered foci of T2 and T2 FLAIR hyperintensity in the supratentorial white matter. Patient has no neurological signs or symptoms. Tele stroke was consulted and they recommended outpatient follow up for his MRI findings. No concern for acute stroke. Stable for discharge. Opioid HPI Opioid Management Most Recent Opioid Data: Last Pain Assessment 06/14/23 13:55 Last ORT Total Score 1 06/14/23 01:22 Last ORT Risk Category Low Risk 06/14/23 01:22 Ur Phencyclidine Scrn Negative (NEGATIVE) 06/13/23 21:10 Review of Systems ROS Status of ROS 10 or more systems reviewed and unremarkable except as noted in history and below PFSH PFSH Family History (Updated 06/14/23 @ 13:35 by Shaikh Raegan MD) Other Family history of stroke Social History (Updated 06/14/23 @ 01:15 by Yoselin Gayle) Within the past year, how often did you have a drink containing alcohol: monthly or less Do you use any of these nicotine containing products: vaping products Non-prescribed substance use: denies use 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 Highest level of school completed/degree received: high school graduate Little interest or pleasure in doing things: not at all Feeling down, depressed, or hopeless: not at all Feel stressed/tense/nervous/anxious/difficulty sleeping: only a little Meds Home Medications and Allergies Home Medications ?Medication ?Instructions ?Recorded ?Confirmed ?Type No Known Home Medications 06/13/23 06/13/23 History Allergies Allergy/AdvReac Type Severity Reaction Status Date / Time No Known Drug Allergies Allergy Verified 06/13/23 21:02 Exam Constitutional Vital Signs, click to edit/add: Last Vital Signs Temp 97.6 F 06/14/23 08:00 Pulse 76 06/14/23 11:45 Resp 18 06/14/23 08:00 BP 130/80 06/14/23 08:00 Pulse Ox 97 06/14/23 11:40 O2 Del Method Room Air 06/14/23 11:40 Documenting provider has reviewed patient's vital signs: yes Common normals: no apparent distress and oriented x3 General appearance: cooperative HENCA Common normals: normocephalic and head/scalp atraumatic Head and scalp: normocephalic and atraumatic Eye Common normals: conjunctivae normal and no scleral icterus Conjunctiva: conjunctiva(e) normal Respiratory Common normals: normal respiratory effort and clear to auscultation bilaterally Effort & inspection: able to speak in complete sentences Auscultation: clear to auscultation bilaterally Cardio Common normals: regular rate, S1 normal heart sound and S2 normal heart sound Rate: regular rate Heart sounds: S1 normal and S2 normal GI Common normals: Normal to inspection, nondistended, normoactive bowel sounds present, soft to palpation, non-tender and no hepatosplenomegaly Palpation: soft and no hepatosplenomegaly Extremity Common normals: no clubbing, cyanosis or edema Neuro Common normals: oriented x3, moves all extremities and no focal motor deficits Psych Common normals: mental status grossly normal, denies hallucinations, denies homicidal ideation and denies suicidal ideation Results Labs Labs: Short CBC 06/13/23 06/14/23 Range/Units 21:34 04:02 WBC 4.7 8.7 (4.0-11.0) 10^3/uL Hgb 14.5 13.7 L (14.0-18.0) g/dL Hct 43.4 40.4 L (42.0-54.0) % Plt Count 220 230 (150-450) 10^3/uL BMP 06/13/23 06/14/23 21:34 04:02 Sodium 139 142 Potassium 4.0 3.6 Chloride 100 104 Carbon Dioxide 30.7 28.4 BUN 11.0 10.0 Creatinine 0.79 0.85 Glucose 92 104 Calcium 9.7 9.3 Liver Function 06/13/23 Range/Units 21:34 Total Bilirubin 0.6 (0.2-1.0) mg/dL AST 10 L (15-37) U/L ALT 19 (16-63) U/L Alkaline Phosphatase 47 (46-116) U/L Albumin 4.4 (3.4-5.0) g/dL Urine 06/13/23 Range/Units 21:10 Urine Color Lt. yellow (YELLOW) Urine Clarity Clear (CLEAR) Urine pH 7.0 (5.0-9.0) Ur Specific [place] <=1.005 A (1.005-1.025) Urine Protein Negative (NEG/TRACE) mg/dL Urine Glucose (UA) Negative (NEGATIVE) mg/dL Assessment and Plan Assessment and Plan (1) Dizziness: (2) Abnormal brain MRI: (3) Pre-syncope: Plan Patient presented to ED with dizziness, lightheadedness, pre syncope and feeling like his head was heavy and his balance was off. His symptoms have resolved. He experiences lightheadedness intermittently and feels well after drinking or eating. He thinks this is because blood glucose drops every now and then and after he eats something, his symptoms improve. He admits to poorly controlled anxiety and that he is experiencing panic attacks lately. He was admitted for observation due to abnormal CTH finding that prompted an MRI of brain - no evidence of acute intracranial pathology but non specific foci of T2 and T2 FLAIR hyperintensity in the supratentorial white matter were noted. Patient was seen by tele stroke and was cleared for discharge with outpatient follow up with neurology.
--- NOTE | 2023-06-15 15:15 | CM.DCFOLLOWU ---
Person spoke with: patient How are you feeling? better How is your pain? no pain Did you understand your discharge instructions? yes Do you have any questions about your discharge instructions? no Were you given any prescriptions at discharge? no Were you able to get your prescriptions filled? N/A Do you understand how to take your medications as ordered? N/A Do you have any questions about your follow up appointment and do you plan to keep your follow up appointment? no questions, has attempted to call PCP, line was busy, will try again. Has not attempted nuerology yet, but will Is there anything else that you would like to discuss? no Questions/Comments/Concerns/Other: N/A
== END 2023-06-14 14:21 | disposition home or self-care (01) ==
LOC: ER 06-14 00:37 → ICU 06-14 01:12
PROVIDERS: Physician Assistant; Registered Nurse; Admitting Provider Internal Medicine; Emergency Provider Internal Medicine; Visit Provider Internal Medicine
DX: R42 Dizziness and giddiness (principal); R55 Syncope and collapse; R94.02 Abnormal brain scan; Z20.822 Contact with and (suspected) exposure to COVID-19; F17.290 Nicotine dependence, other tobacco product, uncomplicated
CPT/HCPCS: 36415; 70450; 70551; 71046; 80048; 80053; 80179; 80307; 80329; 81001; 83036; 83690; 84484; 85025; 85027; 86308; 87804; 87811; 93005; 94761; 96361; 96374; 99285; G0378

== ENCOUNTER 2024-11-07 11:12 | Emergency (ER) | payer SELFPAY ==
[2024-11-07 11:57] VITALS: BP 126/83; PULSE 98; TEMP 37.1; O2SAT 100; BMI 24.9
--- NOTE | 2024-11-07 12:31 | ECG_ITS ---
The [facility] Test Date: 2024-11-07 Pat Name: NAPOLEON JOSE Department: Room: - Gender: Male Relay Dispatcher: LIZETT: 2000 Requested By: Order Number: [id number] Reading MD: LETICIA JENSEN Measurements Intervals [place] Rate: 77 P: 52 [place]: 114 QRS: 91 QRSD: 92 T: 37 QT: 374 QTc: 406 Interpretive Statements 1100 Sinus rhythm 2210 Short [place] interval 4068 Nonspecific [place] abnormality 7102 Moderate right axis deviation 9150 abnormal ECG Compared to ECG 06/13/2023 21:28:27 Right-axis deviation now present Sinus arrhythmia no longer present Electronically Signed On 11-07-2024 15:31:48 EDT by LETICIA JENSEN
--- NOTE | 2024-11-07 12:31 | XR_ITS ---
[place] [id number] Patient Name: NAPOLEON JOSE MRN: [id number] date: 2000 Sex: M Assigned Patient Location: ER Current Patient Location: ER Accession/Order Number: [id number] Exam Date: 11/07/2024 12:38 Report Date: 11/07/2024 13:08 At the request of: SAKINA LUGO Procedure: XR chest 1V XR chest 1V 11/07/2024 12:41 PM SIGNS AND SYMPTOMS: ^Chest pain ^Y PROTOCOL: Frontal radiograph of the chest COMPARISON: 06/13/2023 FINDINGS: The trachea is midline. The heart and mediastinal structures are within normal limits. The lung parenchyma is clear. The bony thorax is intact. XR/XR chest 1V IMPRESSION: No acute cardiopulmonary pathology. Impression dictated by: Vinay Shukla M.D. 11/07/2024 1:08 PM Dictation Location: [facility] Electronically authenticated by: [id number] Y Date: 11/07/2024 13:08
--- NOTE | 2024-11-07 12:33 | ED_ITS ---
HPI HPI - General Adult General Chief complaint: Chest Pain Stated complaint: CHEST PAIN ABDOMIN PAIN Time Seen by Provider: 11/07/24 12:14 Source: patient Mode of arrival: walk-in Limitations: no limitations History of Present Illness HPI narrative: Patient is a 23-year-old male that presents to the emergency department with complaints of intermittent chest and abdominal pressure for the past 20 days, worse in the past 3 days. He states that he has started a ketogenic/carnivore diet in the past 20 days. He notes that the pressure is somewhat in the epigastric area and will move around to his chest, back, armpit, and abdomen areas. He states that he has been belching a lot since he started the diet and this does help relieve the pain. He denies a past medical history of GERD. He has had heartburn in the past but has never had to take medications for it. He has also had some intermittent blurry vision worries him. He has tried to get in with his primary care doctor but they cannot see him for another week so he presented here for evaluation. Related Data Previous Rx's ?Medication ?Instructions ?Recorded famotidine 40 mg tablet (Pepcid) 40 mg PO DAILY #14 ta bs 11/07/24 Allergies Allergy/AdvReac Type Severity Reaction Status Date / Time No Known Drug Allergies Allergy Verified 11/07/24 12:01 Opioid HPI Opioid Management Most Recent Opioid Data: Last Pain Scale 5 Today, 12:42 Last ORT Total Score 1 06/14/23, 01:22 Last ORT Risk Category Low Risk 06/14/23, 01:22 Ur Phencyclidine Scrn, (NEGATIVE) Negative , 21:10 Review of Systems ROS Status of ROS 10 or more systems reviewed and unremark able except as noted in history and below [facility] Medical History (Updated 11/07/24 @ 13:52 by PARISH Garcia) Abnormal brain MRI ?R90.89 - Other abnormal findings on diagnostic imaging of central nervous system (ICD-10) Family History (Updated 06/14/23 @ 13:35 by Shaikh Raegan MD) Other Family history of stroke Social History (Updated 06/14/23 @ 01:15 by Yoselin Gayle) Within the past year, how often did you have a drink containing alcohol: monthly or less Do you use any of these nicotine containing products: vaping products Non-prescribed substance use: denies use Previous occupational history: [employer] Highest level of school completed/degree received: high school graduate Little interest or pleasure in doing things: not at all Feeling down, depressed, or hopeless: not at all Feel stressed/tense/nervous/anxious/difficulty sleeping: only a little Exam Narrative Exam Narrative: General: No distress, age-appropriate Skin: Warm, dry, no pallor. No rash. Head: Normocephalic, atraumatic. Neck: Supple, non-tender. Eye: Pupils are equal, round and EOMI. No scleral icterus. Ears, Nose, Mouth, and Throat: No nasal mucosal hypertrophy. Oral mucosa is moist, no posterior oropharynx erythema, uvula is mid-line Cardiovascular: Regular Rate and Rhythm without murmur, gallop or rub. Respiratory: No accessory muscle use or respiratory distress. Lungs are clear to auscultation, no wheezing, rales or rhonchi Chest Wall: no tenderness Back: No midline thoracic or lumbar vertebral tenderness. Musculoskeletal: Full ROM of all extremities, no calf or popliteal tenderness GI: Abdomen is soft, non-distended, non tender to palpation. No masses appreciated. No rebound, guarding, or rigidity noted. Neurological: A&O x4. No cranial nerve dysfunction observed. No truncal ataxia. Moves all extremities. Sensation intact. Psychiatric: Cooperative and interactive. Normal mood and affect. Constitutional Vital Signs, click to edit/add: Last Vital Signs Temp 98.8 F 11/07/24 11:57 Pulse 98 H 11/07/24 11:57 Resp 18 11/07/24 11:57 BP 126/83 11/07/24 11:57 Pulse Ox 100 11/07/24 11:57 Documenting provider has reviewed patient's vital signs: yes Course Vital Signs Vital signs: Vital Signs Temperature 98.8 F 11/07/24 11:57 Pulse Rate 98 H 11/07/24 11:57 Respiratory Rate 18 11/07/24 11:57 Blood Pressure 126/83 11/07/24 11:57 Pulse Oximetry 100 11/07/24 11:57 Temperature 98.8 F 11/07/24 11:57 Pulse Rate 98 H 11/07/24 11:57 Respiratory Rate 18 11/07/24 11:57 Blood Pressure 126/83 11/07/24 11:57 Pulse Oximetry 100 11/07/24 11:57 Medical Decision Making MDM Narrative Medical decision making narrative: This is a 23-year-old male that presented to the emergency department with complaints of worsened epigastric/chest pressure in the past 3 days. He did start a ketogenic/carnivore diet about 20 days ago and has been having intermittent chest/back/armpit/abdominal pains since this time that worsened in the past 3 days. He describes it as gas pains. He states that they somewhat ease with belching. He does note that he has been belching more. He does endorse flatus and is having bowel movements. He has had heartburn in the past but denies a history of GERD or any medications. He is also concerned as he has been having some intermittent blurry vision. On arrival patient is in no distress, vitals are hemodynamically stable, patient is well-appearing and he denies any chest or abdominal pain on exam. EKG on arrival, heart rate 77, sinus rhythm, nonspecific T wave abnormality with moderate right axis deviation. Chest x-ray ordered. GI cocktail ordered. Chest x-ray without any acute abnormality. I did discuss patient's test results with him. His blurry vision was once yesterday, I discussed that this could be shifts in electrolytes secondary to his new diet. I did recommend possibly adding in some extra carbohydrates to see if this resolves the issue. He states that he did add a little bit of carbohydrates yesterday after he had that symptom and it has not reoccurred. We did discuss discharge with PCP follow-up, he does have an appointment made for next week already. I am going to discharge him with Pepcid 40mg daily to trial. Patient is agreeable. We did discuss return precautions such as worsening recurrence of blurry vision, headache, weakness, or neurological symptoms develop, persistent chest or abdominal pain, vision loss, flashing lights, or eye pain. Vitals remained stable while in the emergency department. Patient experienced no neurological deficits or altered mental status. Patient voiced understanding and was discharged with close PCP follow-up. Differential Diagnosis Differential Diagnosis: GI gas, PUD, Gastritis Imaging Data Chest x-ray: Attestation: I have reviewed the pertinent imaging results. Radiologist's impression: ITS Impressions Chest X-Ray 11/07/24 12:31 IMPRESSION: No acute cardiopulmonary pathology. Impression dictated by: Vinay Shukla M.D. 11/07/2024 1:08 PM Dictation Location: [place] [id number] Electronically authenticated by: [id number] Y Date: 11/07/2024 13:08 ECG Data Attestation: ?I have reviewed the pertinent ECG results. Discharge Plan Discharge Chief Complaint: Chest Pain Clinical Impression: Chest pain Patient Disposition: Home, Self-Care Time of Disposition Decision: 13:21 Condition: Good Mode of Transportation: Private Vehicle Prescriptions / Home Meds: New famotidine [Pepcid] 40 mg tablet 40 mg PO DAILY Qty: 14 0RF Print Language: Turkmen Instructions: Noncardiac Chest Pain (ED) Additional Instructions: Return to the Emergency Department if you experience - Blurry vision is worsening - Any headache, weakness, or neurological symptoms develop - Persistent abdominal or chest pain - Vision loss, flashing lights, or eye pain Referrals: Physician,Non-Staff, MD [Primary Care Provider] - 1 week Discharge Date/Time: 11/07/24 14:26
[2024-11-07] MEDS: lidocaine HCL 15 ML, MAG HYDROX/ALUMINUM HYD/SIMETH 30 ML, HYOSCYAMINE SULFATE 0.25 MG PO (12:54)
== END 2024-11-07 14:26 | disposition home or self-care (01) ==
PROVIDERS: Emergency Provider Student in an Organized Health Care Education/Training Program
DX: R07.9 Chest pain, unspecified (principal); F17.290 Nicotine dependence, other tobacco product, uncomplicated
CPT/HCPCS: 71045; 93005; 99284